=== PATIENT | male | born 1960 | race Caucasian/White ===

== ENCOUNTER 2020-09-18 05:33 | Day surgery (SDC) | payer OTHER ==
[~2020-09-18 05:33] MED LIST: Acetaminophen 500 MG Tab PO ONE
[2020-09-18] MEDS ORDERED: Dextrose 5%-Lactated Ringers 1,000 ML IV SCH (06:00)
[2020-09-18] MEDS ORDERED: Bupivacaine 0.5%/EPINEPHrine 1:200,000 50 ML MDV ONE (06:40)
[2020-09-18] MEDS ORDERED: Meropenem 500 MG SDV ONE (06:40)
[2020-09-18] MEDS: ceFAZolin 2 GM in Premix Bag 1 BAG IV ONE ×2 (07:10→07:35)
[2020-09-18] MEDS ORDERED: Ondansetron 4 MG/2 ML SDV ONE (07:15)
[2020-09-18] MEDS ORDERED: Succinylcholine 200 MG/10 ML MDV ONE (07:15)
[2020-09-18] MEDS ORDERED: Neostigmine Methylsulfate 1 MG/ML 5 ML Syringe ONE (07:15)
[2020-09-18] MEDS ORDERED: Rocuronium 50 MG/5 ML Vial ONE (07:15)
[2020-09-18] MEDS ORDERED: Glycopyrrolate 0.2 MG/ML 5 ML MDV ONE (07:15)
[2020-09-18] MEDS ORDERED: fentaNYL 250 MCG/5 ML SDV ONE (07:15)
[2020-09-18] MEDS ORDERED: Propofol 200 MG/20 ML SDV ONE (07:15)
[2020-09-18] MEDS ORDERED: Dexamethasone 4 MG/ML SDV ONE (07:15)
[2020-09-18] MEDS ORDERED: Ketamine 50 MG in Sodium Chloride 0.9% 49.5 ML IV SCH (07:30)
[2020-09-18] MEDS ORDERED: Ketamine 500 MG/5 ML MDV IV SCH (07:30)
[2020-09-18] MEDS ORDERED: ePHEDrine 50 MG/ML SDV ONE (07:48)
[2020-09-18] MEDS ORDERED: Lactated Ringers 1,000 ML ONE (07:56)
[2020-09-18] MEDS ORDERED: fentaNYL 100 MCG/2 ML SDV ONE ×2 (08:07→08:25)
[2020-09-18] MEDS ORDERED: fentaNYL 100 MCG/2 ML SDV IVPUSH ONE (08:31)
[2020-09-18] MEDS ORDERED: hydrOXYzine HCL 100 MG/2 ML SDV IM ONE (08:31)
[2020-09-18] MEDS: oxyCODONE 5 MG Tab PO PRN ×2 (09:58→13:38)
[2020-09-18] MEDS ORDERED: Acetaminophen 500 MG Tab PO PRN (13:19)
[2020-09-18 13:37] VITALS: BP 100/60; PULSE 76
--- NOTE | 2020-09-26 17:22 | OR ---
DATE OF PROCEDURE: 09/18/2020 SURGEON: Spenser Loving MD PREOPERATIVE DIAGNOSIS: Incarcerated umbilical hernia. POSTOPERATIVE DIAGNOSIS: Incarcerated umbilical hernia. OPERATIVE PROCEDURE: Diagnostic laparoscopy with: 1. Repair of incarcerated umbilical hernia with mesh (81572). 2. Placement of Interceed mesh to limit adhesion formation between intraperitoneal mesh and adjacent abdominopelvic walters to underlying viscera (48817). ANESTHESIA: General. MUFFLER HAND: Elizabeth Alarcon PA-C. INDICATIONS FOR PROCEDURE: The patient is a 60-year-old male presenting with fairly large incarcerated umbilical hernia. The plan is to proceed with a laparoscopic or if necessary open repair with mesh. Potential risks of procedure including bleeding, infection, injury to underlying viscera, problems with mesh becoming infected or the hernia recurring were all reviewed with the patient, and he wishes to proceed. DETAILS OF PROCEDURE: The patient was taken to the operating room and placed in a supine position. After general endotracheal anesthesia was induced, a Cruz catheter was inserted which was removed at the end of the procedure, and the abdomen was prepped and draped. In the left lateral abdomen, a transverse incision was made. Peritoneal cavity was entered under direct vision with an Optiview trocar, inflated to 15 mmHg pressure with CO2. Laparoscope was then reinserted. No underlying trocar insertion site injuries were seen. Transverse abdominis plane blocks were then placed bilaterally, and 5 mm trocars were placed in the left lower quadrant and left upper quadrant. Examination of the area of herniation showed a large amount of incarcerated omentum within it. This was dissected free along with some of the hernia sac using a combination of Harmonic scalpel dissection and upward pressure, thus reducing the hernia, and the hernia sac and some of the attached fatty tissue was then sent for the specimen examination. The hernia defect itself measured at this point right around 2 cm and the fascia was then reapproximated using #1 Vicryl stitch closing the deep fascial defect with a transverse orientation. During this phase, pressure was turned down to 10 mmHg in the abdomen, so as to allow more adequate apposition of the fascia. Once this was in place, then a Ventralex ST mesh with round configuration, diameter 20.3 cm was selected. This was soaked in antibiotic-containing saline solution and placed in intraperitoneal location. A small stab wound just below the umbilicus was made and the inflation catheter was then pulled up through the center of the hernia and the balloon inflated, thus bringing the mesh up against the abdominal wall. Mesh was then further fixed circumferentially with absorbable tacking screws. Good fixation was noted. The balloon positioning system was then removed and the mesh appeared to be well fixed. At this point, to facilitate lack of adhesion formation between the mesh and adjacent abdominopelvic walters, Interceed mesh was placed, and at that point, no further problems noted. Trocars were removed. The peritoneal cavity deflated. The fascia at the 12 mm site was closed with 0 Vicryl stitch and the skin with 4-0 Vicryl skin stitch. Dressing was applied. The patient was taken to the recovery room in satisfactory condition. Physician library technical assistant, Elizabeth Alarcon, played an essential role in assisting in this case, helping to position the patient, retract structures as needed, as well as suturing and cutting sutures when indicated. Her presence improved patient safety and decreased operating time. Spenser Loving MD /[id number]
== END 2020-09-18 14:03 | disposition home or self-care (01) ==
LOC: JP.SDS 05:33
PROVIDERS: ATTEND Surgery
DX: K42.0 Umbilical hernia with obstruction, without gangrene (principal); K66.0 Peritoneal adhesions (postprocedural) (postinfection); I10 Essential (primary) hypertension; E66.9 Obesity, unspecified; Z68.34 Body mass index [BMI] 34.0-34.9, adult
CPT/HCPCS: 36415; 49653; 49999; 80053; 83735; 84100; 85027; 88302; 93005; 93010; A9270; C1781; J0171; J0330; J0690; J1100; J2020; J2185; J2405; J2704; J2710; J2795; J3010; J3410; J3490; J7120; J7121